=== PATIENT | female | born 1995 | race Two or more races ===

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

== ENCOUNTER → 2018-02-03 | Outpatient (CLI) | payer OTHER ==
[~2018-02-03] MED LIST: LEVO125T PO
[2018-02-03 16:01] LABS: BASOPHILS # (AUTO) 0.05 x10^3/uL (0-0.3); BASOPHILS % (AUTO) 1 % (0-1); EOSINOPHILS # (AUTO) 0.11 x10^3/uL (0-0.8); EOSINOPHILS % (AUTO) 1 % (1-7); LYMPHOCYTES # (AUTO) 2.02 x10^3/uL (1-6.1); LYMPHOCYTES % (AUTO) 25 % (22-44); MD NO; MEAN CORPUSCULAR HEMOGLOBIN 29.5 pg (27.0-34.8); MEAN CORPUSCULAR HGB CONC 34.1 g/dL (32.4-35.8); MEAN CORPUSCULAR VOLUME 86.3 fL (80-100); MEAN PLATELET VOLUME 7.1 fL (7.4-10.4); MONOCYTES # (AUTO) 0.47 x10^3/uL (0-1.4); MONOCYTES % (AUTO) 6 % (2-9); NEUTROPHILS # (AUTO) 5.44 x10^3/uL (1.8-8.0); NEUTROPHILS % (AUTO) 67 % (42-75); PLATELET COUNT 344 x10^3/uL (130-400); RED BLOOD COUNT 4.82 x10^6/uL (3.82-5.3); RED CELL DISTRIBUTION WIDTH 13.3 % (9.6-15.2)
[2018-02-03 16:13] LABS: ALANINE AMINOTRANSFERASE 16 U/L (12-78); ALBUMIN 3.9 g/dL (3.4-5.0); ANION GAP 7 mmol/L (5-15); CALCIUM 9.4 mg/dL (8.5-10.1); CHLORIDE 108 mmol/L (98-107); CREATININE 0.64 mg/dL (0.55-1.02)
[2018-02-03 16:15] LABS: ALKALINE PHOSPHATASE 52 U/L (45-117); BILIRUBIN,TOTAL 0.2 mg/dL (0.2-1.0); TOTAL PROTEIN 7.4 g/dL (6.4-8.2)
== END | disposition home or self-care (01) ==
LOC: STAR 15:13
PROVIDERS: ATTEND Surgery
DX: Z01.818 Encounter for other preprocedural examination (principal)
CPT/HCPCS: 36415; 80053; 85025; 93005

== ENCOUNTER 2018-02-13 06:15 | Inpatient (IN) | payer OTHER ==
[~2018-02-13] VITALS: Ht 162.6 cm; Wt 68.2 kg
[2018-02-13] MEDS ORDERED: LACTATED RINGERS 1,000 ML IV SCH (06:51)
[2018-02-13] MEDS ORDERED: LIDOCAINE-MPF 1%, 2ML INFIL ONE (07:00)
[2018-02-13 07:18] LABS: HCG UR SG 1.026 (1.003-1.030)
[2018-02-13] MEDS ORDERED: FENTANYL PF 250 MCG/5ML ONE (07:24)
[2018-02-13] MEDS ORDERED: MIDAZOLAM 1 MG/ML, 2ML ONE (07:24)
[2018-02-13] MEDS ORDERED: PHENYLEPHRINE 10 MG/ML ONE (07:30)
[2018-02-13] MEDS ORDERED: BUPIVACAINE/PF-EPI 0.5% 1:200K INFIL ONE (08:43)
[2018-02-13] MEDS ORDERED: PROPOFOL 10 MG/ML, 20ML ONE (09:19)
[2018-02-13] MEDS ORDERED: DEXAMETHASONE 4 MG/ML, 1ML ONE (09:19)
[2018-02-13] MEDS ORDERED: ROCURONIUM 10MG/ML,5ML ONE (09:19)
[2018-02-13] MEDS ORDERED: ONDANSETRON 2MG/ML, 2ML ONE ×2 (09:19→19:10)
[2018-02-13] MEDS ORDERED: CEFAZOLIN 1,000 MG ONE (09:19)
[2018-02-13] MEDS ORDERED: NEOSTIGMINE 1 MG/ML, 10ML ONE (09:19)
[2018-02-13] MEDS ORDERED: GLYCOPYRROLATE 0.2MG/1ML, 5ML ONE (09:19)
[2018-02-13] MEDS ORDERED: SUCCINYLCHOLINE 20 MG/ML, 10ML ONE (09:19)
[2018-02-13] MEDS ORDERED: FENTANYL PF 100 MCG/2ML ONE ×3 (09:20→12:55)
[2018-02-13] MEDS ORDERED: MEPERIDINE/PF 25MG/0.5ML IVPush PRN (09:30)
[2018-02-13] MEDS ORDERED: DIAZEPAM 5 MG/ML, 2ML IVPush PRN (09:30)
[2018-02-13] MEDS ORDERED: OXYcodone 5 MG/5 ML ORAL.SOL UDC PO PRN (09:30)
[2018-02-13] MEDS ORDERED: ACETAMINOPHEN 325 MG TABLET PO PRN ×2 (09:30→14:30)
[2018-02-13] MEDS ORDERED: ONDANSETRON ODT 8 MG PO PRN (09:30)
[2018-02-13] MEDS ORDERED: HYDROmorphone 2 MG/ML, 1ML IVPush PRN (09:30)
[2018-02-13] MEDS ORDERED: ONDANSETRON 2MG/ML, 2ML IV PRN (09:30)
[2018-02-13] MEDS ORDERED: OXYcodone 5 MG/5 ML ORAL.SOL UDC ONE (12:55)
[2018-02-13] MEDS: FENTANYL PF 100 MCG/2ML IV PRN ×2 (12:59→13:16)
[2018-02-13] MEDS ORDERED: HYDROmorphone 2 MG/ML, 1ML ONE (13:02)
[2018-02-13] MEDS ORDERED: METOPROLOL 1 MG/ML, 5ML ONE (13:22)
[2018-02-13] MEDS ORDERED: METOPROLOL 1 MG/ML, 5ML IV PRN (13:30)
[2018-02-13] MEDS ORDERED: ACETAMINOPHEN 650 MG SUPP PR PRN (14:30)
[2018-02-13] MEDS ORDERED: hydrALAzine 20 MG/ML, 1ML IV PRN (14:30)
[2018-02-13] MEDS: HYDROmorphone 2 MG/ML, 1ML IV PRN ×3 (15:01→23:37)
[2018-02-13] MEDS ORDERED: LABETALOL 5MG/ML, 20ML IVPush PRN (16:30)
[2018-02-13] MEDS ORDERED: PROCHLORPERAZINE 10MG TABLET PO PRN (16:30)
[2018-02-13] MEDS: HYDROcodone/APAP 5/325 TABLET PO PRN (17:37)
[2018-02-13] MEDS: CALCIUM/VITAMIN D3 250-125 TABLET PO SCH ×2 (17:37→20:08)
[2018-02-13] MEDS: ONDANSETRON 2MG/ML, 2ML IVPush PRN (19:14)
[2018-02-13] MEDS: SODIUM CHLORIDE FLUSH 10ML SYR IVF SCH (20:26)
[2018-02-13 21:00] VITALS: BP 124/80
[2018-02-14] MEDS: ONDANSETRON 2MG/ML, 2ML IVPush PRN ×3 (01:45→14:59)
[2018-02-14] MEDS: HYDROmorphone 2 MG/ML, 1ML IV PRN ×4 (03:42→16:08)
[2018-02-14 03:46] VITALS: BP 103/65
[2018-02-14 07:16] VITALS: BP 118/77
[2018-02-14] MEDS: CALCIUM/VITAMIN D3 250-125 TABLET PO SCH ×3 (07:58→19:39)
[2018-02-14] MEDS: SODIUM CHLORIDE FLUSH 10ML SYR IVF SCH ×2 (09:00→19:39)
[2018-02-14 12:53] VITALS: BP 112/74
[2018-02-14] MEDS: HYDROcodone/APAP 5/325 TABLET PO PRN ×3 (13:56→23:41)
[2018-02-14 20:10] VITALS: BP 113/72
[2018-02-15 01:54] VITALS: BP 104/70
[2018-02-15] MEDS: HYDROcodone/APAP 5/325 TABLET PO PRN ×2 (04:04→08:03)
[2018-02-15] MEDS ORDERED: LEVOTHYROXINE 125 MCG TABLET PO SCH (06:00)
[2018-02-15] MEDS ORDERED: HYDR-3240 PO (07:28)
[2018-02-15] MEDS ORDERED: CALC-112 PO (07:44)
[2018-02-15 07:54] VITALS: BP 116/77
[2018-02-15] MEDS: SODIUM CHLORIDE FLUSH 10ML SYR IVF SCH (08:03)
[2018-02-15] MEDS: CALCIUM/VITAMIN D3 250-125 TABLET PO SCH (08:03)
== END 2018-02-15 08:27 | disposition home or self-care (01) | DRG 627 ==
LOC: ORIP 06:15 → 4NOR 13:57
PROVIDERS: ADMIT Surgery; ATTEND Surgery
PROC: 07B20ZZ Excision of Left Neck Lymphatic, Open Approach (ICD-10-PCS; 2018-02-13)
PROC: 07B10ZZ Excision of Right Neck Lymphatic, Open Approach (ICD-10-PCS; 2018-02-13)
PROC: 4A11X4G Monitoring of Peripheral Nervous Electrical Activity, Intraoperative, External Approach (ICD-10-PCS; 2018-02-13)
PROC: 0GTK0ZZ Resection of Thyroid Gland, Open Approach (ICD-10-PCS; principal; 2018-02-13 07:30)
DX: C73 Malignant neoplasm of thyroid gland (principal); Z80.0 Family history of malignant neoplasm of digestive organs; E03.9 Hypothyroidism, unspecified; R59.0 Localized enlarged lymph nodes
CPT/HCPCS: 36415; J3490; Q0164; 71046; 81025; 82310; 83970; 86850; 86900; 88305; 88307; 93005; C1729; G0378; J0690; J1100; J1170; J2250; J2405; J2704; J2710; J3010; C1760; J0330; J2370; J7120

== ENCOUNTER → 2019-05-18 | Outpatient (CLI) | payer OTHER, MEDICAID ==
[~2019-05-18] MED LIST changes: +CALC-112 PO; +HYDR-3240 PO; +IBUP-1222 PO
== END | disposition home or self-care (01) ==
LOC: RAD 08:51
PROVIDERS: ATTEND Internal Medicine Endocrinology, Diabetes & Metabolism
DX: C73 Malignant neoplasm of thyroid gland (principal)
CPT/HCPCS: 78018; A9528

== ENCOUNTER 2019-08-23 20:37 | Emergency (ER) | payer OTHER, MEDICAID ==
[~2019-08-23] VITALS: Ht 160 cm; Wt 71.6 kg
--- NOTE | 2019-08-23 21:15 | NUR ---
PT TO ED WITH C/O RIGHT SIDED CP WITH RADIATION TO RIGHT FLANK, ALONG WITH RUQ PAIN. PT DENIES N/V, PALPITATIONS OR ANY OTHER C/O AT THIS TIME. PT REPORTS HX OF SAME X2 WEEKS AGO, WITH MORE PAIN IN EPIGASTRIC AND RUQ/LUQ OF ABDOMEN. PT CONNECTED TO ALL MONITORING, CALL LIGHT WITHIN REACH, ALL SAFETY MEASURES IN PLACE.
[2019-08-23 21:24] LABS: BASOPHILS # (AUTO) 0.03 x10^3/uL (0-0.1); BASOPHILS % (AUTO) 1 % (0-1); EOSINOPHILS # (AUTO) 0.13 x10^3/uL (0-0.4); EOSINOPHILS % (AUTO) 2 % (1-7); LYMPHOCYTES % (AUTO) 28 % (22-44); MD NO; MEAN CORPUSCULAR HEMOGLOBIN 26.7 pg (27.0-34.8); MEAN CORPUSCULAR VOLUME 83.3 fL (80-100); MEAN PLATELET VOLUME 6.8 fL (7.4-10.4); MONOCYTES # (AUTO) 0.36 x10^3/uL (0.2-0.8); MONOCYTES % (AUTO) 5 % (2-9); NEUTROPHILS # (AUTO) 4.39 x10^3/uL (1.8-6.8); NEUTROPHILS % (AUTO) 64 % (42-75); PLATELET COUNT 398 x10^3/uL (130-400); RED BLOOD COUNT 5.13 x10^6/uL (3.82-5.3); RED CELL DISTRIBUTION WIDTH 16.3 % (9.6-15.2)
[2019-08-23 21:37] LABS: ALANINE AMINOTRANSFERASE 32 U/L (12-78); ALBUMIN 4.1 g/dL (3.4-5.0); ANION GAP 6 mmol/L (5-15); CALCIUM 9.5 mg/dL (8.5-10.1); CHLORIDE 108 mmol/L (98-107); CREATININE 0.82 mg/dL (0.55-1.02)
[2019-08-23 21:42] LABS: ALKALINE PHOSPHATASE 68 U/L (45-117); BILIRUBIN,TOTAL 0.2 mg/dL (0.2-1.0); TOTAL PROTEIN 8.4 g/dL (6.4-8.2)
--- NOTE | 2019-08-23 21:50 | NUR ---
PT MEDICATED PER MAR, REPORTS DECREASED PAIN. UPDATED ON POC. MONITORING IN PLACE, CALL LIGHT WITHIN REACH.
--- NOTE | 2019-08-23 22:04 | NUR ---
PT UP TO BR WITH STEADY GAIT TO PROVIDE UA.
--- NOTE | 2019-08-23 22:15 | NUR ---
PT BACK FROM BR MONITORING REAPPLIED, CALL LIGHT WITHIN REACH, ALL SAFETY MEASURES IN PLACE. ROOM DIMMED FOR PT COMFORT.
[2019-08-23] MEDS ORDERED: MORPHINE SULFATE 4 MG/ML, 1ML ONE (22:29)
[2019-08-23] MEDS ORDERED: ONDANSETRON 2MG/ML, 2ML ONE (22:29)
[2019-08-23] MEDS ORDERED: MORPHINE SULFATE 4 MG/ML, 1ML IVPush PRN (22:30)
[2019-08-23] MEDS ORDERED: ONDANSETRON 2MG/ML, 2ML IVPush ONE (22:30)
[2019-08-23 22:31] LABS: MICROSCOPIC AUTO
[2019-08-23 23:05] VITALS: BP 115/79
== END 2019-08-23 23:36 | disposition home or self-care (01) ==
LOC: ED 23:05
DX: K80.20 Calculus of gallbladder without cholecystitis without obstruction (principal); K80.70 Calculus of gallbladder and bile duct without cholecystitis without obstruction
CPT/HCPCS: 36415; 76700; 80053; 81001; 83690; 84703; 85025; 87086; 93005; 96374; 96375; 99285; J2270; J2405

== ENCOUNTER 2019-11-03 07:10 | Emergency (ER) | payer OTHER, MEDICAID ==
[~2019-11-03] VITALS: Ht 160 cm; Wt 71.0 kg
[2019-11-03] MEDS ORDERED: ONDANSETRON 2MG/ML, 2ML IVPush ONE (07:30)
[2019-11-03] MEDS ORDERED: SODIUM CHLORIDE FLUSH 10ML SYR IVF ONE (07:30)
[2019-11-03 07:58] LABS: BASOPHILS # (AUTO) 0.04 x10^3/uL (0-0.1); BASOPHILS % (AUTO) 1 % (0-1); EOSINOPHILS # (AUTO) 0.09 x10^3/uL (0-0.4); EOSINOPHILS % (AUTO) 1 % (1-7); LYMPHOCYTES % (AUTO) 31 % (22-44); MD NO; MEAN CORPUSCULAR HEMOGLOBIN 27.9 pg (27.0-34.8); MEAN CORPUSCULAR HGB CONC 32.6 g/dL (32.4-35.8); MONOCYTES # (AUTO) 0.51 x10^3/uL (0.2-0.8); MONOCYTES % (AUTO) 7 % (2-9); NEUTROPHILS # (AUTO) 4.61 x10^3/uL (1.8-6.8); NEUTROPHILS % (AUTO) 60 % (42-75); PLATELET COUNT 382 x10^3/uL (130-400); RED BLOOD COUNT 4.93 x10^6/uL (3.82-5.3); RED CELL DISTRIBUTION WIDTH 15.6 % (9.6-15.2)
[2019-11-03 08:08] LABS: ALBUMIN 3.7 g/dL (3.4-5.0); ANION GAP 10 mmol/L (5-15); CALCIUM 9.1 mg/dL (8.5-10.1); CHLORIDE 108 mmol/L (98-107)
[2019-11-03 08:15] LABS: ALANINE AMINOTRANSFERASE 14 U/L (12-78); ALKALINE PHOSPHATASE 67 U/L (45-117); BILIRUBIN,TOTAL 0.2 mg/dL (0.2-1.0); TOTAL PROTEIN 7.5 g/dL (6.4-8.2)
--- NOTE | 2019-11-03 08:23 | NUR ---
PT NEED IV/MEDS STARTED, REGGIE WILL CALL WHEN THE PT IS READY - US DELAY
[2019-11-03] MEDS ORDERED: MAALOX/HYOSCYAMINE/LIDOCAINE 45 ML BTL PO ONE (08:30)
[2019-11-03] MEDS ORDERED: MAALOX/HYOSCYAMINE/LIDOCAINE 45 ML BTL ONE (08:33)
[2019-11-03] MEDS ORDERED: ONDANSETRON 2MG/ML, 2ML ONE (08:33)
--- NOTE | 2019-11-03 08:35 | NUR ---
first contact with pt. pt c/o ruq abd pain with nausea. pt denies v/d. pt stated"i have gallstones." pt's aox4. resps even and unlabored. bp/spo2 monitors in place. call light within reach.
--- NOTE | 2019-11-03 08:40 | NUR ---
piv est on r forearm with no complications. pt medicated per emar. pt tolerated well.
--- NOTE | 2019-11-03 08:41 | NUR ---
this rn called us x 1. no answer at this time.
--- NOTE | 2019-11-03 09:03 | NUR ---
us paged at this time.
[2019-11-03 09:38] VITALS: BP 110/73
--- NOTE | 2019-11-03 09:48 | NUR ---
pt resting in [facility]. pt's apx4. resps even and unlabored.
--- NOTE | 2019-11-03 10:24 | NUR ---
Patient given discharge instructions and they have confirmed that they understand the instructions. Patient ambulatory with steady gait.
== END 2019-11-03 10:25 | disposition home or self-care (01) ==
LOC: ED 08:38
DX: K80.20 Calculus of gallbladder without cholecystitis without obstruction (principal)
CPT/HCPCS: 36415; 76700; 80053; 83690; 84703; 85025; 96374; 99284; J2405